=== PATIENT | male | born 1975 | race Two or more races ===

== ENCOUNTER 2024-10-22 01:00 | Emergency (ER) | payer BC ==
[~2024-10-22] VITALS: Ht 182.9 cm; Wt 113.4 kg
[2024-10-22] MEDS ORDERED: CEFAZOLIN SODIUM 1,000 MG VIAL IM STA (03:17)
[2024-10-22] MEDS ORDERED: TETANUS & DIPHTHERIA TOX,ADULT 0.5 ML VIAL IM STA (03:17)
[2024-10-22] MEDS ORDERED: CEFAZOLIN SODIUM 1,000 MG VIAL ONE (03:20)
[2024-10-22] MEDS ORDERED: LIDOCAINE HCL 1% 10ML VIAL ONE (03:20)
[2024-10-22] MEDS ORDERED: TETANUS DIPHTHERIA TOX. ADSOR 5 ML VIAL IM ONE (03:21)
== END 2024-10-22 04:25 | disposition home or self-care (01) ==
LOC: ER 01:02
DX: S01.82XA Laceration with foreign body of other part of head, initial encounter (principal); W45.8XXA Other foreign body or object entering through skin, initial encounter; Y93.89 Activity, other specified; Y92.012 Bathroom of single-family (private) house as the place of occurrence of the external cause